=== PATIENT | male | born 1995 | race Hispanic/Latino ===

== ENCOUNTER 2019-01-21 08:07 | Emergency (ER) | payer OTHER ==
[2019-01-21 08:33] LABS: Absolute Lymphocytes (CBC) 1.3 K/uL (0.7-4.9); Basophils % 0.4 % (0-1.3); Hematocrit 33.9 % (39.6-49.0); Lymphocytes % 13.5 % (15.3-44.8); RBC Red Blood Cell Count 4.06 M/uL (4.33-5.43)
[2019-01-21 08:51] LABS: ALT/SGPT 24 U/L (12-78); AST/SGOT 5 U/L (15-37); Albumin 3.2 g/dL (3.4-5.0); Alkaline Phosphatase 36 U/L (45-117); BUN Blood Urea Nitrogen 55 mg/dL (7-18); Bicarbonate 18 mmol/L (21-32); Bilirubin Direct < 0.1 mg/dL (0-0.2); Bilirubin Total 0.2 mg/dL (0.2-1.0); Glucose Level 109 mg/dL (74-106); Lipase 311 U/L (73-393); Potassium 4.7 mmol/L (3.5-5.1); Protein, Total 6.8 g/dL (6.4-8.2); Sodium Level 141 mmol/L (136-145)
--- NOTE | 2019-01-21 09:35 | RAD REPORT ---
EXAM DESCRIPTION: CT - Abdomen Pelvis Wo Contrast - 01/21/2019 9:04 am CLINICAL HISTORY: Abdominal pain COMPARISON: 2008 TECHNIQUE: Computed axial tomography of the abdomen and pelvis was obtained. IV and oral contrast we re not requested. All CT scans are performed using dose optimization technique as appropriate and may include automated exposure control or mA/KV adjustment according to patient size. FINDINGS: The evaluation of solid organs, vessels and bowel is limited secondary to the lack of con trast administration. The liver, spleen, pancreas, adrenals and kidneys appear grossly normal. The appendix is normal. There is no evidence of diverticulitis. IMPRESSION: No acute traumatic injury is seen
--- NOTE | 2019-01-21 09:40 | RAD REPORT ---
EXAM DESCRIPTION: Pennie Single View01/21/2019 8:59 am CLINICAL HISTORY: Chest pain COMPARISON: 2007 FINDINGS: The lungs appear clear of acute infiltrate. The heart is borderline enlarged Mild prominence of the mediastinum IMPRESSION: Mild prominence of mediastinum. PA and lateral chest series recommended for further lianna luation
--- NOTE | 2019-01-21 10:47 | RAD REPORT ---
EXAM DESCRIPTION: RAD - Chest Pa And Lat (2 Views) - 01/21/2019 10:38 am CLINICAL HISTORY: TRAUMA Chest pain. COMPARISON: Chest Single View dated 01/21/2019; CHEST PA AND LAT 2 VIEW dated 01/20/2008; CHEST PA AND LAT 2 VIEW dated 1995 FINDINGS: The lungs are clear. The heart is normal in size. No displaced fractures. IMPRESSION: No acute or concerning finding suspected.
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
== END 2019-01-21 11:32 | disposition home or self-care (01) ==
LOC: ER 08:07
DX: S39.91XA Unspecified injury of abdomen, initial encounter (principal); V49.50XA Passenger injured in collision with unspecified motor vehicles in traffic accident, initial encounter; I10 Essential (primary) hypertension
CPT/HCPCS: 36415; 71045; 71046; 74176; 80048; 80076; 83690; 85025; 99284